=== PATIENT | female | born 1955 | race Caucasian/White ===

== ENCOUNTER 2023-10-31 12:43 | Outpatient (CLI) | payer MEDICARE, BC ==
[~2023-10-31] VITALS: Ht 157.5 cm; Wt 70.3 kg
[2023-10-31] MEDS ORDERED: RIZA10TA28 PO (13:48)
[2023-10-31] MEDS ORDERED: DICL50TA8 PO (13:48)
[2023-10-31] MEDS ORDERED: CYCL5TAB PO (13:48)
[2023-10-31] MEDS ORDERED: OMEP20CA16 PO (13:48)
[2023-10-31] MEDS ORDERED: DICL100G59 TOP (13:48)
[2023-10-31] MEDS ORDERED: LOSA50TA64 PO (13:48)
[2023-10-31] MEDS ORDERED: ACET-1025 PO (13:48)
[2023-10-31] MEDS ORDERED: SPIR25TA5 PO (13:48)
[2023-10-31 14:01] LABS: BASOPHILS % (AUTO) 0.5 % (0-1); EOSINOPHILS # (AUTO) 0.1 X10'3 (0-0.9); EOSINOPHILS % (AUTO) 1.2 % (0-6); LYMPHOCYTES # (AUTO) 1.2 X10'3 (1.1-4.8); LYMPHOCYTES % (AUTO) 18.2 % (21-51); MEAN CORPUSCULAR HEMOGLOBIN 30.8 PG (27.0-31.0); MEAN CORPUSCULAR HGB CONC 34.2 g/dL (33.0-36.5); MEAN PLATELET VOLUME 8.8 FL (7.4-10.4); MONOCYTES # (AUTO) 0.3 X10'3 (0-0.9); MONOCYTES % (AUTO) 4.6 % (2-12); NEUTROPHILS # (AUTO) 5.1 X10'3 (1.8-7.7); NEUTROPHILS % (AUTO) 75.5 % (42-75); PRE OP HEMATOCRIT 43.4 % (35.0-45.0); PRE OP HEMOGLOBIN 14.9 g/dL (12.0-16.0); PRE OP PLATELET COUNT 260 X10'3 (140-440); PRE OP WHITE BLOOD COUNT 6.7 10'3 (4.8-10.8); RED BLOOD COUNT 4.83 X10'6 (4.20-5.60); RED CELL DISTRIBUTION WIDTH 13.6 % (11.5-14.5)
[2023-10-31 14:15] LABS: ALBUMIN 4.2 G/DL (3.4-5.0); ALBUMIN/GLOBULIN RATIO 1.3 (1.1-1.5); ALKALINE PHOSPHATASE 77 IU/L (46-116); BLOOD UREA NITROGEN 18 MG/DL (7-18); BUN/CREATININE RATIO 23.4 (10.0-20.0); CALCIUM 9.5 MG/DL (8.5-10.1); CHLORIDE 107 MMOL/L (99-107); CREATININE 0.77 MG/DL (0.40-0.90); PRE OP ALT 36 U/L (30-65); PRE OP ANION GAP 9 (8-16); PRE OP AST 15 U/L (10-37); PRE OP BILIRUB, TOTAL 0.6 MG/DL (0.0-1.0); PRE OP GLUCOSE 102 MG/DL (70-104); PRE OP SODIUM 143 MMOL/L (135-145); TOTAL CARBON DIOXIDE 26.9 MMOL/L (24-32); TOTAL PROTEIN 7.5 G/DL (6.4-8.2); eGFR 75 ML/MIN
[2023-10-31 14:17] LABS: PRE OP PROTIME 10.9 SECONDS (9.0-12.0)
[2023-11-06] MEDS ORDERED: ringers solution, lacted 1,000 ML IV SCH (05:00)
[2023-11-06] MEDS ORDERED: tranexamic acid inj. 1,000 MG in normal saline IV soln 100ML IV ONE (05:30)
[2023-11-06] MEDS ORDERED: cefazolin 2gm/D5W 100mL 100 ML IV ONE (05:30)
[2023-11-06] MEDS ORDERED: famotidine 20mg tablet PO ONE (05:30)
== END 2023-11-06 23:59 | disposition home or self-care (01) ==
LOC: LAB 12:43 → EDSTATUS 11-06 12:45 → LAB 11-06 23:59
PROVIDERS: ATTEND Specialist
DX: Z01.812 Encounter for preprocedural laboratory examination (principal); M75.101 Unspecified rotator cuff tear or rupture of right shoulder, not specified as traumatic; M25.511 Pain in right shoulder; S42.251S Displaced fracture of greater tuberosity of right humerus, sequela; I10 Essential (primary) hypertension; E06.3 Autoimmune thyroiditis; Z98.890 Other specified postprocedural states; Z87.19 Personal history of other diseases of the digestive system; Z86.69 Personal history of other diseases of the nervous system and sense organs; X58.XXXS Exposure to other specified factors, sequela
CPT/HCPCS: 36415; 80053; 85025; 85610; 85730; 86885; 86900; 86901; J0690; J3490; J7120